=== PATIENT | male | born 1975 | race Caucasian/White ===

== ENCOUNTER 2019-06-10 10:43 | Outpatient (CLI) | payer SELFPAY ==
--- NOTE | 2019-06-10 10:50 | XR_ITS ---
WS: [id number] Lumbar spine with flexion, extension, and neutral lateral, 06/10/2019 Clinical Data: Low back pain Comparison: Lateral lumbar spine, 04/25/2015. Findings: There is an anterior subluxation of L5 on S1 of 0.8 cm, similar to the previous finding. There is clara ateral spondylolysis at L5-S1. There is degenerative disc narrowing at L1-L2 with anterior osteophyte formation. There is mild disc space narrowing at L4-L5. On flexion and extension there is no increas e in the subluxation at L5-S1. There is no limitation of motion. There is a large amount of feces in the rectum. No compression fractures are seen. XR/XR lumbar spine f/e only [id number] Impression: 1. No change in spondylolysis and spondylolisthesis of L5-S1. 2. No change in degenerative disc at L1-L2 and L4-L5. 3. No limitation of motion or change in subluxation on flexion or extension.
--- NOTE | 2019-06-10 10:50 | XR_ITS ---
WS: [id number] Lateral views of cervical spine in the flexion, extension and neutral positions. 06/10/2019 Clinical Data: Neck pain Comparison: Lateral cervical spine, 08/18/2014. Findings: Is degenerative disc narrowing C6-C7 with minimal osteophyte formation at this level. No subluxation or limitation of motion is seen on flexion or extension. No compression fractures are seen. There is no prevertebral soft tissue swelling. XR/XR cervical spine fl/ex [id number] Impression: 1. Negative for limitation of motion or subluxation on flexion or extension. 2. Degenerative disc disease at C6-C7 with mild osteophyte formation.
== END 2019-06-10 10:44 | disposition home or self-care (01) ==
LOC: RAD 10:47
PROVIDERS: Family Provider Nurse Practitioner Family; PCP Internal Medicine; Visit Provider Licensed Practical Nurse
DX: M50.020 Cervical disc disorder with myelopathy, mid-cervical region, unspecified level (principal); M51.17 Intervertebral disc disorders with radiculopathy, lumbosacral region; M47.892 Other spondylosis, cervical region; M25.78 Osteophyte, vertebrae
CPT/HCPCS: 72040; 72120

== ENCOUNTER → 2021-01-24 09:10 | Outpatient (BNVA) | payer MEDICAID, SELFPAY | PROVIDERS: Family Provider Nurse Practitioner Family; Visit Provider Specialist | DX: G43.711 Chronic migraine without aura, intractable, with status migrainosus (principal); Z86.73 Personal history of transient ischemic attack (TIA), and cerebral infarction without residual deficits; E66.3 Overweight; Z68.38 Body mass index [BMI] 38.0-38.9, adult; Z87.891 Personal history of nicotine dependence | CPT/HCPCS: 99204; 99205 ==

== ENCOUNTER → 2021-03-15 14:57 | Outpatient (BNVA) | payer MEDICAID, SELFPAY | PROVIDERS: Family Provider Nurse Practitioner Family; Visit Provider Specialist | DX: G43.711 Chronic migraine without aura, intractable, with status migrainosus (principal); Z86.73 Personal history of transient ischemic attack (TIA), and cerebral infarction without residual deficits; Z86.16 Personal history of COVID-19; Z71.85 Encounter for immunization safety counseling; Z87.891 Personal history of nicotine dependence | CPT/HCPCS: 99213; 99214 ==

== ENCOUNTER → 2021-04-20 12:52 | Outpatient (BNVA) | payer MEDICAID, SELFPAY | PROVIDERS: Family Provider Nurse Practitioner Family; Visit Provider Specialist | DX: G43.711 Chronic migraine without aura, intractable, with status migrainosus (principal) | CPT/HCPCS: 64615; J0585 ==

== ENCOUNTER → 2021-07-27 13:38 | Outpatient (BNVA) | payer MEDICAID, SELFPAY | PROVIDERS: Family Provider Nurse Practitioner Family; Visit Provider Specialist | DX: G43.711 Chronic migraine without aura, intractable, with status migrainosus (principal); Z87.891 Personal history of nicotine dependence | CPT/HCPCS: 64615; J0585 ==

== ENCOUNTER → 2021-10-19 13:04 | Outpatient (BNVA) | payer MEDICAID, SELFPAY | PROVIDERS: Family Provider Nurse Practitioner Family; Visit Provider Specialist | DX: G43.711 Chronic migraine without aura, intractable, with status migrainosus (principal) | CPT/HCPCS: 64615; J0585 ==

== ENCOUNTER 2022-01-25 06:00 | Outpatient (RCR) | payer MEDICAID, SELFPAY | END 2022-01-29 23:59 | disposition home or self-care (01) | LOC: GPT 06:00 | PROVIDERS: PCP Nurse Practitioner Family; Visit Provider Family Medicine | DX: G89.4 Chronic pain syndrome (principal); M47.012 Anterior spinal artery compression syndromes, cervical region; M47.016 Anterior spinal artery compression syndromes, lumbar region | CPT/HCPCS: 97162 ==

== ENCOUNTER 2022-01-30 06:00 | Outpatient (RCR) | payer MEDICAID, SELFPAY | END 2022-02-28 23:59 | disposition home or self-care (01) | LOC: GPT 06:00 | PROVIDERS: PCP Nurse Practitioner Family; Visit Provider Family Medicine | DX: G89.29 Other chronic pain (principal); M47.012 Anterior spinal artery compression syndromes, cervical region; M47.016 Anterior spinal artery compression syndromes, lumbar region | CPT/HCPCS: 97110; 97112; 97140 ==

== ENCOUNTER 2022-03-01 06:00 | Outpatient (RCR) | payer MEDICAID, SELFPAY | END 2022-03-31 23:59 | disposition home or self-care (01) | LOC: GPT 06:00 | PROVIDERS: PCP Nurse Practitioner Family; Visit Provider Family Medicine | DX: G89.4 Chronic pain syndrome (principal); M47.012 Anterior spinal artery compression syndromes, cervical region; M47.016 Anterior spinal artery compression syndromes, lumbar region | CPT/HCPCS: 97110; 97140; 97164; 97530; 97535 ==

== ENCOUNTER 2022-04-01 06:00 | Outpatient (RCR) | payer MEDICAID, SELFPAY | END 2022-05-01 23:59 | disposition home or self-care (01) | LOC: GPT 06:00 | PROVIDERS: PCP Nurse Practitioner Family; Visit Provider Family Medicine | DX: M47.012 Anterior spinal artery compression syndromes, cervical region (principal); M47.016 Anterior spinal artery compression syndromes, lumbar region; G89.29 Other chronic pain | CPT/HCPCS: 97110; 97140 ==

== ENCOUNTER 2022-05-02 06:00 | Outpatient (RCR) | payer MEDICAID, SELFPAY | END 2022-05-29 23:59 | disposition home or self-care (01) | LOC: GPT 06:00 | PROVIDERS: PCP Nurse Practitioner Family; Visit Provider Family Medicine | DX: M47.892 Other spondylosis, cervical region (principal); M47.896 Other spondylosis, lumbar region; G89.29 Other chronic pain | CPT/HCPCS: 97110; 97112; 97140; 97530 ==

== ENCOUNTER 2022-05-30 06:00 | Outpatient (RCR) | payer MEDICAID, SELFPAY | END 2022-06-29 23:59 | disposition home or self-care (01) | LOC: GPT 06:00 | PROVIDERS: PCP Nurse Practitioner Family; Visit Provider Family Medicine | DX: M47.012 Anterior spinal artery compression syndromes, cervical region (principal); M47.016 Anterior spinal artery compression syndromes, lumbar region; G89.29 Other chronic pain | CPT/HCPCS: 97110; 97140; 97164 ==

== ENCOUNTER 2022-07-30 06:00 | Outpatient (RCR) | payer MEDICAID, SELFPAY | END 2022-08-29 23:59 | disposition home or self-care (01) | LOC: GPT 06:00 | PROVIDERS: PCP Nurse Practitioner Family; Visit Provider Family Medicine | DX: M47.012 Anterior spinal artery compression syndromes, cervical region (principal); M47.016 Anterior spinal artery compression syndromes, lumbar region | CPT/HCPCS: 97110; 97140; 97164 ==

== ENCOUNTER 2022-08-30 06:00 | Outpatient (RCR) | payer MEDICAID, SELFPAY | END 2022-09-28 23:59 | disposition home or self-care (01) | LOC: GPT 06:00 | PROVIDERS: PCP Nurse Practitioner Family; Visit Provider Family Medicine | DX: M47.012 Anterior spinal artery compression syndromes, cervical region (principal); M47.016 Anterior spinal artery compression syndromes, lumbar region; G89.29 Other chronic pain | CPT/HCPCS: 97110; 97112; 97140; 97530 ==

== ENCOUNTER 2022-09-29 06:00 | Outpatient (RCR) | payer MEDICAID, SELFPAY | END 2022-10-25 23:59 | disposition home or self-care (01) | LOC: GPT 06:00 | PROVIDERS: PCP Nurse Practitioner Family; Visit Provider Family Medicine | DX: M47.012 Anterior spinal artery compression syndromes, cervical region (principal); M47.016 Anterior spinal artery compression syndromes, lumbar region; G89.29 Other chronic pain | CPT/HCPCS: 97110; 97140; 97530; 97535 ==

== ENCOUNTER → 2022-10-22 13:20 | Outpatient (BNVA) | payer MEDICAID, SELFPAY | PROVIDERS: PCP Nurse Practitioner Family; Referring Provider Nurse Practitioner Occupational Health; Visit Provider Specialist | DX: M25.512 Pain in left shoulder (principal) | CPT/HCPCS: 73030 ==

== ENCOUNTER 2023-03-05 06:00 | Outpatient (RCR) | payer MEDICARE, MEDICAID, SELFPAY | END 2023-03-31 23:59 | disposition home or self-care (01) | LOC: GPT 06:00 | PROVIDERS: Visit Provider Nurse Practitioner Occupational Health | DX: M54.9 Dorsalgia, unspecified (principal); G89.29 Other chronic pain | CPT/HCPCS: 97110; 97112; 97140; 97162 ==

== ENCOUNTER 2023-03-20 12:46 | Outpatient (CLI) | payer MEDICARE, MEDICAID, SELFPAY ==
--- NOTE | 2023-03-20 13:00 | MR_ITS ---
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 COMPARISON: None available. TECHNIQUE: 3-D MR angiography is performed of the [place]. All images are reviewed including source images. Distal vertebral and basilar arteries are intact with no significant stenosis or plaque. Mildly domin ant LEFT vertebral artery. Posterior cerebral arteries are normal course and caliber. Posterior commu nicating arteries are both patent. Intracranial portion of the internal carotid arteries are normal course and caliber. No significant a therosclerosis, stenosis or aneurysm identified. Middle and anterior cerebral arteries are both paten t with no significant disease. Anterior communicating artery is also normal. IMPRESSION: Normal MRA [place].
--- NOTE | 2023-03-20 13:15 | MR_ITS ---
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 COMPARISON: None available. TECHNIQUE: Diffusion imaging, multiplanar T1, T2 and FLAIR imaging obtained. No evidence for acute infarct or hemorrhage. Quiros-white matter differentiation is normal. Small amoun t of increased T2 signal and FLAIR signal in the anterior medial frontal lobes. Signal is symmetric a nd bilateral and may be related to prior trauma. No remote or acute infarcts are volume loss. Ventricles and extra-axial spaces are normal. No inferior displacement of cerebellar tonsils. The sella turcica and pituitary gland are unremarkabl e. Dural venous sinuses and [place] demonstrate no abnormality on this unenhanced studies. Paranasal sinuses: Mucoperiosteal thickening in the LEFT sphenoid sinus and posterior RIGHT ethmoid a ir cells. No air-fluid levels. Mastoid air cells: Normal. Calvarium and scalp: Intact. IMPRESSION: 1. No acute infarct or hemorrhage. 2. Bifrontal symmetric increased T2 and FLAIR signal in a distribution that may be related to prior trauma. No additional infarct. 3. 3. Posterior RIGHT ethmoid and LEFT sphenoid sinus disease.
== END 2023-03-20 12:47 | disposition home or self-care (01) ==
LOC: RAD 12:46
PROVIDERS: PCP Nurse Practitioner Occupational Health; Visit Provider Specialist
DX: G43.711 Chronic migraine without aura, intractable, with status migrainosus (principal); I63.439 Cerebral infarction due to embolism of unspecified posterior cerebral artery
CPT/HCPCS: 70544; 70551

== ENCOUNTER 2023-04-01 06:00 | Outpatient (RCR) | payer MEDICARE, MEDICAID, SELFPAY | END 2023-04-30 23:59 | disposition home or self-care (01) | LOC: GPT 06:00 | PROVIDERS: PCP Nurse Practitioner Occupational Health; Visit Provider Nurse Practitioner Occupational Health | DX: M54.9 Dorsalgia, unspecified (principal); G89.29 Other chronic pain | CPT/HCPCS: 97110; 97112; 97140; 97164 ==

== ENCOUNTER → 2023-05-23 11:57 | Outpatient (BNVA) | payer MEDICARE, MEDICAID, SELFPAY | PROVIDERS: PCP Nurse Practitioner Occupational Health; Visit Provider Specialist | DX: G43.711 Chronic migraine without aura, intractable, with status migrainosus (principal) | CPT/HCPCS: 64615; J0585 ==

== ENCOUNTER → 2023-08-22 12:07 | Outpatient (BNVA) | payer MEDICARE, MEDICAID, SELFPAY | PROVIDERS: PCP Nurse Practitioner Occupational Health; Visit Provider Specialist | DX: G43.711 Chronic migraine without aura, intractable, with status migrainosus (principal); I63.433 Cerebral infarction due to embolism of bilateral posterior cerebral arteries | CPT/HCPCS: 64615; 99212; J0585 ==

== ENCOUNTER → 2023-09-18 13:31 | Outpatient (BNVA) | payer MEDICARE, MEDICAID, SELFPAY | PROVIDERS: PCP Nurse Practitioner Occupational Health; Visit Provider Internal Medicine Cardiovascular Disease | DX: R00.2 Palpitations (principal) | CPT/HCPCS: 93005; 99204 ==

== ENCOUNTER 2023-10-14 12:28 | Outpatient (CLI) | payer MEDICARE, MEDICAID, SELFPAY ==
--- NOTE | 2023-10-14 12:30 | USCV_ITS ---
Nathan Simpson Age: 48 Gender: M : 1975 Exam Date: 10/14/2023 13:02 Ordering Phys: Augustus Siddiqi MD ([email or web address]) Technologist: DINH Exam Location: [facility] – [place] Indication: CHEST PAIN AND SHORTNESS OF BREATH BP: 116 / 64 HR: 69 Rhythm: Sinus Technical Quality: Adequate MEASUREMENTS (Male / Female) Normal Values 2D ECHO LV Diastolic Diameter PLAX 5.0 cm 4.2 - 5.9 / 3.9 - 5.3 cm IVS Diastolic Thickness 1.4 cm 0.6 - 1.0 / 0.6 - 0.9 cm IVS Systolic Thickness 2.5 cm LVPW Diastolic Thickness 1.7 cm 0.6 - 1.0 / 0.6 - 0.9 cm LVPW Systolic Thickness 2.9 cm LVOT Diameter 2.0 cm LV Ejection Fraction 2D Teich 58.4 % LV Ejection Fraction MOD 4C 60.6 % LV Ejection Fraction MOD 2C 61.5 % LV Ejection Fraction 2C AL 63.0 % LA Diameter 2.8 cm RA Systolic Volume 4C AL 30.0 ml RA Systolic Volume 4C MOD 29.0 ml LA Sys Volume AL 34.7 cm cubed LA Sys Volume Index AL 12.9 cm cubed/m squared Aorta at Sinotubular Diameter 2.7 cm IVC Diameter 2.0 cm M-MODE LA Ao Ratio MM 0.9 AV Cusp Separation MM 1.9 cm DOPPLER AV Peak Velocity 110.0 cm/s LVOT Peak Velocity 102.0 cm/s AV Area Cont Eq vti 2.9 cm squared AV Area Cont Eq pk 3.0 cm squared MV Peak Velocity 76.0 cm/s MV Area PHT 3.3 cm squared Mitral E to A Ratio 1.1 TR Peak Velocity 137.0 cm/s TR Peak Gradient 7.5 mmHg TR Mean Velocity 119.0 cm/s TR Mean Gradient 5.9 mmHg TR Velocity Time Integral 42.5 cm TV Peak E Velocity 59.0 cm/s Right Atrial Pressure 3.0 mmHg Pulmonary Artery Systolic Pressu 10.5 mmHg RV Ejection Time 0.3 s FINDINGS Left Ventricle Normal left ventricular size and systolic function, EF 62%. No gross wall motion abnormalities Right Ventricle Normal right ventricular size and systolic function. Right Atrium The right atrium is normal in size. Left Atrium The left atrium is normal in size. Mitral Valve No gross abnormalities noted Aortic Valve No gross abnormalities noted Tricuspid Valve No gross abnormalities noted Pulmonic Valve No gross abnormalities noted Pericardium Normal pericardium without effusion. Aorta Normal ascending aorta dimension. IVC Inferior vena cava not visualized. CONCLUSIONS Normal left ventricular size and systolic function, EF 62%. No gross wall motion abnormalities. Normal cardiac chamber sizes. No gross valvular abnormalities. There is no pericardial effusion. There are no intracardiac masses. No similar previous studies are available for comparison Dr Santiago Watson MD FAC (Electronically Signed) Final Date: 17 October 2023 20:03 S
== END 2023-10-14 12:29 | disposition home or self-care (01) ==
LOC: RAD 12:28
PROVIDERS: PCP Nurse Practitioner Occupational Health; Visit Provider Internal Medicine Cardiovascular Disease
DX: R07.9 Chest pain, unspecified (principal); R06.02 Shortness of breath
CPT/HCPCS: 93306

== ENCOUNTER → 2023-12-12 13:19 | Outpatient (BNVA) | payer MEDICARE, MEDICAID, SELFPAY | PROVIDERS: PCP Nurse Practitioner Occupational Health; Visit Provider Specialist | DX: G43.711 Chronic migraine without aura, intractable, with status migrainosus (principal); I63.433 Cerebral infarction due to embolism of bilateral posterior cerebral arteries | CPT/HCPCS: 64615; J0585 ==

== ENCOUNTER → 2024-01-15 10:17 | Outpatient (BNVA) | payer MEDICARE, MEDICAID, SELFPAY | PROVIDERS: PCP Nurse Practitioner Occupational Health; Visit Provider Nurse Practitioner Family | DX: R00.2 Palpitations (principal); I10 Essential (primary) hypertension; K30 Functional dyspepsia; Z72.0 Tobacco use | CPT/HCPCS: 99214 ==

== ENCOUNTER → 2024-07-13 13:43 | Outpatient (BNVA) | payer MEDICARE, MEDICAID, SELFPAY | PROVIDERS: PCP Nurse Practitioner Occupational Health; Visit Provider Internal Medicine Cardiovascular Disease | DX: I10 Essential (primary) hypertension (principal); R00.2 Palpitations; Z79.82 Long term (current) use of aspirin; F17.200 Nicotine dependence, unspecified, uncomplicated | CPT/HCPCS: 99214 ==

== ENCOUNTER → 2024-10-08 13:55 | Outpatient (BNVA) | payer MEDICARE, MEDICAID, SELFPAY | PROVIDERS: PCP Nurse Practitioner Occupational Health; Visit Provider Specialist | DX: G43.711 Chronic migraine without aura, intractable, with status migrainosus (principal) | CPT/HCPCS: 64615; J9999 ==

== ENCOUNTER → 2025-01-28 12:15 | Outpatient (BNVA) | payer MEDICARE, MEDICAID, SELFPAY | PROVIDERS: PCP Nurse Practitioner Occupational Health; Visit Provider Specialist | DX: G43.711 Chronic migraine without aura, intractable, with status migrainosus (principal) | CPT/HCPCS: 64615; J9999 ==